=== PATIENT | female | born 1970 | race Caucasian/White ===

== ENCOUNTER 2016-09-28 16:17 | Emergency (ER) | payer OTHER | END 2016-09-28 19:25 | disposition home or self-care (01) | DX: M79.601 Pain in right arm (principal); E78.00 Pure hypercholesterolemia, unspecified; K21.9 Gastro-esophageal reflux disease without esophagitis; Z86.718 Personal history of other venous thrombosis and embolism; Z88.2 Allergy status to sulfonamides ==